=== PATIENT | male | born 1985 ===

== ENCOUNTER 2017-08-18 01:45 | Emergency (ER) | payer SELFPAY ==
[2017-08-18 02:00] VITALS: RESP 16; TEMP 98.1; O2SAT 99
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
[2017-08-18 05:29] VITALS: BP 145/80; PULSE 81
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
== END 2017-08-18 05:51 | disposition home or self-care (01) ==
LOC: H.ER 01:45
DX: M25.531 Pain in right wrist (principal)